=== PATIENT | male | born 1965 | race Caucasian/White ===

== ENCOUNTER 2018-01-31 13:53 | Emergency (ER) | payer BC ==
[~2018-01-31] VITALS: Ht 177.8 cm; Wt 78.1 kg
[2018-01-31] MEDS ORDERED: PERCOCET 5/31 TABLET PO (15:48)
[2018-01-31 16:02] VITALS: BP 161/101
== END 2018-01-31 16:05 | disposition home or self-care (01) ==
LOC: EME 13:53
DX: S22.41XA Multiple fractures of ribs, right side, initial encounter for closed fracture (principal); W10.9XXA Fall (on) (from) unspecified stairs and steps, initial encounter; R05 Cough; I10 Essential (primary) hypertension; F17.200 Nicotine dependence, unspecified, uncomplicated
CPT/HCPCS: 71101; 99281; 99283